=== PATIENT | female | born 1990 | race Two or more races ===

== ENCOUNTER 2017-01-26 13:48 | Emergency (ER) | payer SELFPAY ==
[~2017-01-26] VITALS: Ht 152.4 cm; Wt 72.6 kg
[2017-01-26 13:57] VITALS: BP 183/123
[2017-01-26] MEDS ORDERED: PENI250T2 PO (14:57)
[2017-01-26] MEDS ORDERED: IBUP-1060 PO (14:57)
[2017-01-26] MEDS ORDERED: HYDR-971 PO (14:57)
--- NOTE | 2017-01-26 14:57 | PHYS DOC ---
Past Medical History Past Medical History: No Pertinent History Past Surgical History: No Surgical History Alcohol Use: None Drug Use: None Adult General Chief Complaint Chief Complaint: MULTIPLE COMPLAINTS HPI HPI Patient is a 26 year old female who presents with dental pain. Patient reports for the past 2 weeks she has been having pain in her right lower jaw at the rear. No clear inciting or mitigating factors. She says the pain is gone worse after 3 days. She has tried to schedule an appointment with the dentist, but is not able to get him in the near future. She denies any discharge from the area. No fever. No difficulty swallowing or breathing. Review of Systems Review of Systems Constitutional: Denies fever or chills HENT: Dental pain Respiratory: Denies cough or shortness of breath Cardiovascular: Denies chest pain GI: Denies abdominal pain, nausea, vomiting, or diarrhea Musculoskeletal: Denies back pain or joint pain Neurologic: Denies headache, focal weakness or sensory changes Current Medications Current Medications Current Medications Medications (Trade) Dose Ordered Sig/Christiano Start Time Stop Time Status Last Admin Dose Admin Acetaminophen/ Hydrocodone Bitart (Lortab 5/325) 2 tab 1X ONCE 01/26/17 15:00 01/26/17 15:01 DC 01/26/17 15:02 2 TAB Ibuprofen (Motrin) 800 mg 1X ONCE 01/26/17 15:00 01/26/17 15:01 DC 01/26/17 15:02 800 MG Penicillin V Potassium (Veetid) 250 mg 1X ONCE 01/26/17 15:00 01/26/17 15:01 DC 01/26/17 15:02 250 MG Allergies Allergies Allergies Coded Allergies Type Severity Reaction Last Updated Verified No Known Drug Allergies 01/26/17 No Physical Exam Physical Exam Constitutional: Well developed, well nourished, no acute distress, non-toxic appearance HENT: Normocephalic, atraumatic. Poor dentition. Tooth #32 not fully exposed; missing teeth 30 and 31; no abscess noted Eyes: EOMI, conjunctiva normal, no discharge Neck: No stridor Pulmonary: No respiratory distress. Clear to auscultation bilaterally. Skin: Warm, dry Neurologic: Alert and oriented X 3 Psychologic: Affect normal, judgement normal, mood normal Current Patient Data Vital Signs Vital Signs Date Time Temp Pulse Resp B/P Pulse Ox O2 Delivery O2 Flow Rate FiO2 01/26/17 13:57 98.5 93 18 183/123 99 Room Air 98.5 EKG EKG [] Radiology/Procedures Radiology/Procedures [] Course & Med Decision Making Course & Med Decision Making Pertinent Labs and Imaging studies reviewed. (See chart for details) Patient is 26-year-old female who presents with dental pain. Possible infection , no abscess noted however. Patient will need to see dentistry, and I discussed this with her. Will give pain medication and dose of penicillin in ED. Will discharge with prescription for same, instructions for follow-up, return precautions. Dragon Disclaimer Dragon Disclaimer This electronic medical record was generated, in whole or in part, using a voice recognition dictation system. Departure Departure Impression: Primary Impression: Toothache Disposition: HOME, SELF-CARE Condition: STABLE Referrals: NO PCP (PCP) Patient Instructions: Dental Pain Additional Instructions: Thank you for allowing us to provide care today in the Emergency Department. Take the provided medication as directed. Use caution when taking the narcotic pain medication as it can make you drowsy. Follow-up with a dentist as we discussed. Return promptly to the Emergency Department if you develop any new or concerning symptoms. Scripts Ibuprofen 800 Mg [id number] Mg PO PRN Q6HRS PRN PAIN #25 TAB Prov:SANTOS BAEZ MD 01/26/17 Hydrocodone/Apap 5-325 ([place] 5-325 Tablet)1 Each Tablet1-2 Tab PO Q6HRS PRN PAIN #25 TAB Prov:SANTOS BAEZ MD 01/26/17 Penicillin V Potassium 250 Mg [id number] Mg PO QID #28 TAB Ref 0 Prov:SANTOS BAEZ MD 01/26/17 SANTOS BAEZ MD Jan 26, 2017 14:57
[2017-01-26] MEDS ORDERED: IBUPROFEN 800 MG TABLET. PO ONE (15:00)
[2017-01-26] MEDS ORDERED: HYDROCODONE/APAP 5/325MG TABLET. PO ONE (15:00)
[2017-01-26] MEDS ORDERED: PENICILLIN V K 250 MG TABLET. PO ONE (15:00)
== END 2017-01-26 15:11 | disposition home or self-care (01) ==
LOC: ER 13:56
DX: K08.89 Other specified disorders of teeth and supporting structures (principal)
CPT/HCPCS: 99284